=== PATIENT | female | born 2005 | race Caucasian/White ===

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

== ENCOUNTER 2023-08-19 13:58 | Emergency (ER) | payer SELFPAY ==
[~2023-08-19] VITALS: Wt 58.9 kg
[2023-08-19] MEDS ORDERED: KETOROLAC10 MG PO (15:34)
[2023-08-19 16:05] VITALS: BP 107/63
== END 2023-08-19 16:14 | disposition home or self-care (01) ==
LOC: ED 13:58
DX: S06.0X0A Concussion without loss of consciousness, initial encounter (principal); W50.1XXA Accidental kick by another person, initial encounter; Y99.0 Civilian activity done for income or pay

== ENCOUNTER 2024-02-02 11:56 | Emergency (ER) | payer OTHER ==
[~2024-02-02] VITALS: Ht 167.6 cm; Wt 58.9 kg
[~2024-02-02 11:56] MED LIST changes: +KETOROLAC10 MG PO
[2024-02-02 12:47] LABS: BASO # 0.01 K/mm3 (0.02-0.10); EOS # 0.07 K/mm3 (0.04-0.40); EOS % 1.2 % (0.1-4.0); HEMATOCRIT 37.3 % (35.0-45.0); HEMOGLOBIN 12.3 g/dL (12.0-15.0); LYMPH# 1.65 K/mm3 (1.20-3.40); MEAN CELL VOLUME 83 fl (78-95); MEAN CORPUSCULAR HEMOGLOBIN 28 pg (26-32); MEAN CORPUSCULAR HGB CONC 33 g/dL (33-37); MEAN PLATELET VOLUME 10.6 fl (7.4-10.4); MONO # 0.43 K/mm3 (0.10-0.60); NEU # 3.68 K/mm3 (1.40-6.50); PLATELET COUNT 200 K/mm3 (130-400); RED BLOOD COUNT 4.48 M/mm3 (4.10-5.30); RED CELL DISTRIBUTION WIDTH 11.8 % (11.5-14.5); WHITE BLOOD COUNT 5.9 K/mm3 (4.8-10.8)
[2024-02-02 12:52] LABS: ALBUMIN 4.5 g/dL (3.5-5.0); SODIUM 143 mmol/L (136-145)
[2024-02-02 12:53] LABS: CALCIUM 9.7 mg/dL (8.3-10.5)
[2024-02-02 12:55] LABS: GLUCOSE 93 mg/dL (65-105); TOTAL PROTEIN 7.4 g/dL (6.4-8.3)
[2024-02-02 12:56] LABS: CARBON DIOXIDE 22 mmol/L (22-29)
[2024-02-02 12:57] LABS: TOTAL BILIRUBIN 0.4 mg/dL (0.2-1.2); URINE APPEARANCE CLEAR (CLEAR); URINE BILIRUBIN NEGATIVE (NEGATIVE); URINE BLOOD TRACE-INTACT (NEGATIVE); URINE COLOR OTHER (YELLOW); URINE GLUCOSE NEGATIVE (NEGATIVE); URINE KETONE NEGATIVE (NEGATIVE); URINE LEUKOCYTE ESTERASE TRACE (NEGATIVE); URINE NITRATE NEGATIVE (NEGATIVE); URINE PROTEIN(semi-quant) NEGATIVE (NEGATIVE)
[2024-02-02 13:00] LABS: AST-SGOT 16 U/L (5-34)
[2024-02-02 13:01] LABS: ALT/SGPT 12 U/L (0-55)
[2024-02-02 13:42] LABS: CLUE CELLS OBSERVED (Not Observd)
[2024-02-02] MEDS ORDERED: METRONIDAZOLE500 M1 PO (14:09)
[2024-02-02] MEDS ORDERED: VIBRAMYCIN HYC100 MG PO (14:09)
[2024-02-02 14:59] VITALS: BP 95/80
== END 2024-02-02 14:32 | disposition home or self-care (01) ==
LOC: ED 11:56
PROVIDERS: Physician Assistant
DX: N76.0 Acute vaginitis (principal); B96.89 Other specified bacterial agents as the cause of diseases classified elsewhere; Z11.3 Encounter for screening for infections with a predominantly sexual mode of transmission; Z88.0 Allergy status to penicillin
CPT/HCPCS: J0696; Q0111

== ENCOUNTER 2024-03-20 01:41 | Emergency (ER) | payer OTHER ==
[~2024-03-20] VITALS: Ht 167.6 cm; Wt 58.4 kg
[~2024-03-20 01:41] MED LIST changes: +METRONIDAZOLE500 M1 PO; +VIBRAMYCIN HYC100 MG PO
[2024-03-20 02:17] LABS: URINE APPEARANCE CLEAR (CLEAR); URINE BILIRUBIN NEGATIVE (NEGATIVE); URINE BLOOD NEGATIVE (NEGATIVE); URINE COLOR YELLOW (YELLOW); URINE GLUCOSE NEGATIVE (NEGATIVE); URINE KETONE NEGATIVE (NEGATIVE); URINE LEUKOCYTE ESTERASE NEGATIVE (NEGATIVE); URINE NITRATE POSITIVE (NEGATIVE); URINE PROTEIN(semi-quant) NEGATIVE (NEGATIVE)
[2024-03-20 02:23] LABS: URINE WBC 0-1 /hpf (0-3)
[2024-03-20 02:34] LABS: BASO # 0.01 K/mm3 (0.02-0.10); EOS # 0.04 K/mm3 (0.04-0.40); EOS % 0.6 % (0.1-4.0); HEMOGLOBIN 11.2 g/dL (12.0-15.0); LYMPH# 1.84 K/mm3 (1.20-3.40); MEAN CELL VOLUME 83 fl (78-95); MEAN CORPUSCULAR HEMOGLOBIN 27 pg (26-32); MEAN CORPUSCULAR HGB CONC 33 g/dL (33-37); MEAN PLATELET VOLUME 10.7 fl (7.4-10.4); MONO # 0.49 K/mm3 (0.10-0.60); NEU # 3.83 K/mm3 (1.40-6.50); PLATELET COUNT 186 K/mm3 (130-400); RED BLOOD COUNT 4.09 M/mm3 (4.10-5.30); RED CELL DISTRIBUTION WIDTH 11.9 % (11.5-14.5); WHITE BLOOD COUNT 6.2 K/mm3 (4.8-10.8)
[2024-03-20] MEDS ORDERED: Ketorolac 30 MG/ML VIAL IM ONE (03:00)
[2024-03-20 03:43] VITALS: BP 90/63
== END 2024-03-20 03:46 | disposition home or self-care (01) ==
LOC: ED 01:41
PROVIDERS: Family Medicine
DX: N39.0 Urinary tract infection, site not specified (principal); Z88.0 Allergy status to penicillin
CPT/HCPCS: J1885